=== PATIENT | male | born 1945 | race Caucasian/White ===

== ENCOUNTER 2021-06-01 10:03 | Emergency (ER) | payer MEDICARE, OTHER ==
[~2021-06-01] VITALS: Ht 177.8 cm; Wt 82.5 kg
--- OUTSIDE RECORDS SUMMARY | 2021-06-01 10:11 | XMS REPORT | Clinical Summary ---
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
[2021-06-01 10:44] LABS: WHITE BLOOD COUNT 9.6 10^3/uL (4.3-11.0)
[2021-06-01] MEDS ORDERED: KETOROLAC 30 MG/ML VIAL IVP ONE (10:45)
--- NOTE | 2021-06-01 10:46 | ED General ---
General Chief Complaint: COVID19 Suspect/Confirmed Stated Complaint: CHEST PAIN Source of Information: Patient, Old Records (reviewed records from [facility] when he was a [facility] patient) History of Present Illness Date Seen by Provider: Jun 01, 2021 Time Seen by Provider: 10:41 Initial Comments 75-year-old male presenting with complaints of chest pain off and on for last 2 to 3 days. He cannot identify anything that brings the chest pain only. The chest pain also spontaneously resolves at times and he cannot identify anything that makes it go away. He has had no nausea or vomiting. His pain does go straight through to his back. It does seem to be worse when he coughs. He has had increased nasal congestion and sinus drainage. He has been exposed to Covid as his was diagnosed with Covid on , May 27. He denies any fever or chills. He has had no nausea or vomiting. He states that this chest pain does not feel similar to when he had heart disease or needed stents in the past. He has not tried taking anything for the pain. He has taken his regular prescription medicines but nothing extra. Timing/Duration: 2-3 Days Severity: Moderate Modifying Factors: worse with Other (coughing makes it worse) Associated Systoms: Chest Pain, Cough; No Diaphoresis, No Fever/Chills, No Headaches, No Loss of Appetite, No Malaise, No Nausea/Vomiting, No Rash, No Seizure, No Shortness of Air, No Syncope, No Weakness Allergies and Home Medications Allergies Coded Allergies: No Known Drug Allergies (Unverified , 06/01/21) Patient Home Medication List Home Medication List Reviewed: Yes Review of Systems Review of Systems Constitutional: see HPI EENTM: see HPI Respiratory: see HPI Cardiovascular: see HPI Gastrointestinal: see HPI Genitourinary: no symptoms reported Musculoskeletal: no symptoms reported Skin: no symptoms reported Psychiatric/Neurological: Anxiety (worried about his heart with the pain not going away today. ); Denies Numbness, Denies Paresthesia Hematologic/Lymphatic: Easy Bleeding (taking warfarin), Easy Bruising (taking warfarin) Past Eowcphx-Lexdxb-Xpwjyv Hx Patient Social History Smoking Status: Former Smoker Past Medical History Surgery/Hospitalization HX: CABG, Defibrillator, Coronary artery stents, Diabetes, Paroxysmal Atrial Fibrillation, Hypertension, Hyperlipidemia Surgeries: Yes Cardiac, CABG, Coronary Stent, Defibrillator Respiratory: No Cardiac: Yes Angina, Atrial Fibrillation, Cardiomyopathy, Coronary Artery Disease, Heart Attack, High Cholesterol, Hypertension Neurological: No Genitourinary: No Gastrointestinal: No Musculoskeletal: No Endocrine: Yes Diabetes, Non-Insulin dep HEENT: No Physical Exam Vital Signs Vital Signs - First Documented 06/01/21 10:08 Temp 35.6 Pulse 86 Resp 24 B/P (MAP) 151/87 (108) Pulse Ox 98 O2 Delivery Room Air Capillary Refill : Height, Weight, BMI Height: '" Weight: lbs. oz. kg; BMI Method: General Appearance: Anxious, Chronically ill HEENT: PERRL/EOMI, Pharynx Normal Neck: Full Range of Motion, Normal Inspection, Non Tender, Supple Respiratory: Chest Non Tender, Lungs Clear, Normal Breath Sounds, No Accessory Muscle Use, No Respiratory Distress Cardiovascular: Regular Rate, Rhythm, Normal Peripheral Pulses Gastrointestinal: Normal Bowel Sounds, No Pulsatile Mass, Non Tender, Soft Rectal: Deferred Extremity: Normal Capillary Refill, Normal Inspection, No Pedal Edema Neurologic/Psychiatric: Alert, Oriented x3 Skin: Normal Color, Warm/Dry Focused Exam Lactate Level 06/01/21 10:32: Lactic Acid Level 1.64 Lactic Acid Level Laboratory Tests Test 06/01/21 10:32 Lactic Acid Level 1.64 MMOL/L (0.50-2.00) Progress/Results/Core Measures Suspected Sepsis SIRS Temperature: Pulse: Respiratory Rate: Laboratory Tests 06/01/21 10:32: White Blood Count 9.6 Blood Pressure / Mean: 06/01/21 10:32: Lactic Acid Level 1.64 Laboratory Tests 06/01/21 10:32: Creatinine 1.02, INR Comment 1.9H, Platelet Count 167, Total Bilirubin 0.5 Results/Orders Lab Results Laboratory Tests Test 06/01/21 10:32 06/01/21 10:45 Range/Units White Blood Count 9.6 4.3-11.0 10^3/uL Red Blood Count 4.82 4.30-5.52 10^6/uL Hemoglobin 12.5 L 13.3-17.7 g/dL Hematocrit 40 40-54 % Mean Corpuscular Volume 84 80-99 fL Mean Corpuscular Hemoglobin 26 25-34 pg Mean Corpuscular Hemoglobin Concent 31 L 32-36 g/dL Red Cell Distribution Width 16.4 H 10.0-14.5 % Platelet Count 167 130-400 10^3/uL Mean Platelet Volume 11.7 9.0-12.2 fL Immature Granulocyte % (Auto) 0 % Neutrophils (%) (Auto) 73 42-75 % Lymphocytes (%) (Auto) 13 12-44 % Monocytes (%) (Auto) 11 0-12 % Eosinophils (%) (Auto) 3 0-10 % Basophils (%) (Auto) 1 0-10 % Neutrophils # (Auto) 7.0 1.8-7.8 X 10^3 Lymphocytes # (Auto) 1.2 1.0-4.0 X 10^3 Monocytes # (Auto) 1.0 0.0-1.0 X 10^3 Eosinophils # (Auto) 0.3 0.0-0.3 10^3/uL Basophils # (Auto) 0.1 0.0-0.1 10^3/uL Immature Granulocyte # (Auto) 0.0 0.0-0.1 10^3/uL Prothrombin Time 21.8 H 12.2-14.7 SEC INR Comment 1.9 H 0.8-1.4 Activated Partial Thromboplast Time 36 H 24-35 SEC Sodium Level 139 135-145 MMOL/L Potassium Level 4.0 3.6-5.0 MMOL/L Chloride Level 100 98-107 MMOL/L Carbon Dioxide Level 25 21-32 MMOL/L Anion Gap 14 5-14 MMOL/L Blood Urea Nitrogen 17 7-18 MG/DL Creatinine 1.02 0.60-1.30 MG/DL Estimat Glomerular Filtration Rate 71 BUN/Creatinine Ratio 17 Glucose Level 149 H 70-105 MG/DL Lactic Acid Level 1.64 0.50-2.00 MMOL/L Calcium Level 9.2 8.5-10.1 MG/DL Corrected Calcium 9.0 8.5-10.1 MG/DL Total Bilirubin 0.5 0.1-1.0 MG/DL Aspartate Amino Transf (AST/SGOT) 16 5-34 U/L Alanine Aminotransferase (ALT/SGPT) 8 0-55 U/L Alkaline Phosphatase 73 40-136 U/L Troponin I < 0.30 <0.30 NG/ML C-Reactive Protein 2.13 H <0.50 MG/DL Pro-B-Type Natriuretic Peptide 1921.0 H <75.0 PG/ML Total Protein 8.0 6.4-8.2 GM/DL Albumin 4.2 3.2-4.5 GM/DL My Orders Orders - JULIO CESAR FLORES MD Monitor-Rhythm Ecg Trace Only (06/01/21 10:07) Ed Iv/Invasive Line Start (06/01/21 10:07) Cbc With Automated Diff (06/01/21 10:07) Comprehensive Metabolic Panel (06/01/21 10:07) Crp Fs (06/01/21 10:07) Troponin I Fs (06/01/21 10:07) Protime With Inr (06/01/21 10:07) Partial Thromboplastin Time (06/01/21 10:07) Ekg Tracing (06/01/21 10:07) Probnp Fs (06/01/21 10:07) Blood Culture (06/01/21 10:07) Lactic Acid Analyzer (06/01/21 10:07) Ketorolac Injection (Toradol Injection) (06/01/21 10:45) Ct Angio Chest W (06/01/21 10:35) Chest 1 View Ap/Pa Only (06/01/21 10:37) Iohexol Injection (Omnipaque 350 Mg/Ml 1 (06/01/21 11:30) Received Contrast (Hold Metformin- Contr (06/01/21 11:30) Sodium Chloride Flush (Catheter Flush Sy (06/01/21 11:30) Ns (Ivpb) (Sodium Chloride 0.9% Ivpb Bag (06/01/21 11:30) Coronavirus Sars-Cov-2 So 2018 (06/01/21 12:14) Medications Given in ED Current Medications Medications Dose Ordered Sig/Susy Route Start Time Stop Time Status Last Admin Dose Admin Iohexol 100 ml ONCE ONCE IV 06/01/21 11:30 06/01/21 11:31 DC 06/01/21 11:48 100 ML Ketorolac Tromethamine 15 mg ONCE ONCE IVP 06/01/21 10:45 06/01/21 10:46 DC 06/01/21 11:25 15 MG Sodium Chloride 10 ml NEEDED PRN IV 06/01/21 11:30 06/01/21 13:19 DC 06/01/21 11:48 10 ML Sodium Chloride 100 ml ONCE ONCE IV 06/01/21 11:30 06/01/21 11:31 DC 06/01/21 11:48 100 ML Vital Signs/I&O 06/01/21 06/01/21 06/01/21 10:08 11:25 13:15 Temp 35.6 35.6 35.7 Pulse 86 74 Resp 24 19 B/P (MAP) 151/87 (108) 145/80 Pulse Ox 98 95 O2 Delivery Room Air Room Air Capillary Refill : Progress Note #1: Progress Note With his and Rosendo from a diagnosis on , June 06 likely has it is well. Especially with his increased nasal congestion and cough in the last several days. This likely is part of his chest pain. However with his heart disease we will also evaluate EKG and cardiac enzymes. Since he has been having pain over the last 2-3 days if this is a heart attack or heart damage he should have elevation of his troponin by now. He did cough while in the room and that seemed to make the pain worse for him so will try a dose of toradol. No acute ST elevation on ECG to send pt to lab aide. Progress Note #2: Progress Note Labs do not show any acute significant abnormality to account for his symptoms other than he had elevated CRP of 2.13 and his proBNP was up to 1921. His lactic acid was negative at 1.64. His white blood cell count was normal at 9.6 with a normal differential. His INR was 1.9. Creatinine of 1. Awaiting CT scanning of his chest to evaluate for pulmonary illness, pneumonia, aortic dissection, rib fracture, pleural effusion Progress Note #3: Progress Note CT angiogram of the chest is negative for PE, pneumonia, acute process. Counseled pt that he had negative findings for PE, Pneumonia, Heart Attack. Treat symptoms as though he has Covid. Covid swab results should be back after 24 hours. Return if any worsening symptoms or check back through the clinic. Try Mucinex to help loosen congestion and cough. ECG Initial ECG Impression Date: Jun 01, 2021 Initial ECG Impression Time: 10:09 Initial ECG Rate: 82 Initial ECG Rhythm: Normal Sinus Initial ECG Comparisson: Unchanged Comment Sinus rhythm with a rate of 82 bpm. Short NH interval of 74 ms. Left atrial enlargement. LVH with secondary repolarization changes. QT interval 380 ms with a QTc interval 444 ms. Appears similar to tracings in the [facility] Diagnostic Imaging Diagonstic Imaging: CT Plain Films/CT/US/NM/MRI: chest Comments NAME: NATALIE TORIBIO [facility] REC#: [id number] PT STATUS: REG ER : 1945 PHYSICIAN: JULIO CESAR FLORES MD ADMIT DATE: 06/01/21/ER FS Draft Date of Exam:06/01/21 CT ANGIO CHEST W PROCEDURE: CT angiography of the chest with contrast. TECHNIQUE: Multiple contiguous axial images were obtained through the chest after uneventful bolus administration of intravenous contrast. 3D reconstructed CTA MIP acquisitions were also performed. Auto Exposure Controls were utilized during the CT exam to meet ALARA standards for radiation dose reduction. INDICATION: Chest pain for 2 days as well as cough. No prior studies are available for comparison. Evaluation of pulmonary arterial system is without evidence of thromboembolism. No definite filling defects are seen within central, lobar or segmental branches. Thoracic aorta is normal caliber. No pericardial or pleural fluid is identified. There are postoperative changes of median sternotomy and CABG. There is a left chest wall cardiac pacemaker in place. Lungs appear clear of acute infiltrates. There is indeterminant nodule in the right lower lobe, image 117 measuring 8 mm in size. Follow-up would be recommended. Otherwise lungs are clear. Upper abdomen is unremarkable. IMPRESSION: 1. No evidence of pulmonary embolism. 2. No acute feature in the chest is identified. 3. 8 mm right lower lobe pulmonary nodule, indeterminate. Follow up to confirm stability would be recommended. Dictated on workstation # [id number] Dict: 06/01/21 1156 Trans: 06/01/21 1206 [facility] [id number] Interpreted by: MARCUS DAVIDSON MD Electronically signed by: Diagonstic Imaging: Xray Plain Films/CT/US/NM/MRI: chest Comments NAME: NATALIE TORIBIO [facility] REC#: [id number] PT STATUS: REG ER : 1945 PHYSICIAN: JULIO CESAR FLORES MD ADMIT DATE: 06/01/21/ER FS Signed Date of Exam:06/01/21 CHEST 1 VIEW AP/PA ONLY INDICATION: chest pain x 2 days, cough, exposed to COVID. TECHNIQUE: Single view chest 11:27 AM. CORRELATION STUDY: None FINDINGS: Poststernotomy changes with coronary artery bypass. Left-sided pacemaker is present, obscuring portions of the left upper lung. Heart size enlarged with pulmonary vasculature within normal limits. The lungs are clear with no consolidating infiltrate. There is no significant effusion or pneumothorax. May be minimal areas of fibrosis over the left mid lung. IMPRESSION: 1. Negative for acute abnormality of the chest. Dictated by: Dictated on workstation # [id number] Dict: 06/01/21 1153 Trans: 06/01/21 1155 DO [id number] Interpreted by: SOBIA RIVAS DO Electronically signed by: SOBIA RIVAS DO 06/01/21 1155 Reviewed: Reviewed by Me Departure Impression Primary Impression: Chest pain in adult Additional Impressions: Cough in adult patient Exposure to confirmed case of COVID-19 Pulmonary nodule seen on imaging study Disposition: HOME, SELF-CARE Condition: Stable Departure-Patient Inst. Decision time for Depature: 12:56 Referrals: SELFMULU MD (PCP/Family) Primary Care Physician Patient Instructions: COVID-19 After You Have Been Vaccinated, COVID-19 Tests, Chest Pain, Adult ED, Cough, Adult ED, Pulmonary Nodule Add. Discharge Instructions: You will get called if you have positive result on your COVID test from today. This may take 24 hours or more to get back. In the meantime you should consider that you have COVID because of your exposure to your . Quarantine and stay isolated for next 10 days. If you have worsening symptoms or more problems return or seek medical care with your provider. Try taking over the counter Mucinex to help loosen your cough and congestion. Do not take your Metformin (Glucophage) for the next 2 days. It can interact with your IV dye that you got for your CT scan of the chest today. After 2 days you can restart the medicine. All discharge instructions reviewed with patient and/or family. Voiced understa nding. JULIO CESAR FLORES MD Jun 01, 2021 10:46
[2021-06-01 10:51] LABS: HEMATOCRIT 40 % (40-54); HEMOGLOBIN 12.5 g/dL (13.3-17.7); LYMPHOCYTES % (AUTO) 13 % (12-44); MEAN CORPUSCULAR HEMOGLOBIN 26 pg (25-34); MEAN CORPUSCULAR HGB CONC 31 g/dL (32-36); MEAN CORPUSCULAR VOLUME 84 fL (80-99); MEAN PLATELET VOLUME 11.7 fL (9.0-12.2); NEUTROPHILS % (AUTO) 73 % (42-75); PLATELET COUNT 167 10^3/uL (130-400)
[2021-06-01 10:52] LABS: BASOPHILS # (AUTO) 0.1 10^3/uL (0.0-0.1); BASOPHILS % (AUTO) 1 % (0-10); EOSINOPHILS # (AUTO) 0.3 10^3/uL (0.0-0.3); EOSINOPHILS % (AUTO) 3 % (0-10); LYMPHOCYTES # (AUTO) 1.2 X 10^3 (1.0-4.0); MONOCYTES % (AUTO) 11 % (0-12)
[2021-06-01 11:00] LABS: INR 1.9 (0.8-1.4); PROTHROMBIN TIME PATIENT 21.8 SEC (12.2-14.7)
[2021-06-01 11:09] LABS: CHLORIDE 100 MMOL/L (98-107); SODIUM 139 MMOL/L (135-145)
[2021-06-01 11:10] LABS: ALANINE AMINOTRANSFERASE 8 U/L (0-55); ALKALINE PHOSPHATASE 73 U/L (40-136); BILIRUBIN,TOTAL 0.5 MG/DL (0.1-1.0); BUN/CREATININE RATIO 17; CALCIUM 9.2 MG/DL (8.5-10.1); CARBON DIOXIDE 25 MMOL/L (21-32); CREATININE SERUM 1.02 MG/DL (0.60-1.30); GFR ESTIMATED 71; GLUCOSE 149 MG/DL (70-105)
[2021-06-01 11:11] LABS: ALBUMIN 4.2 GM/DL (3.2-4.5)
[2021-06-01] MEDS ORDERED: IOHEXOL 350 MG/ML 100 ML (OMNIPAQUE 350) VIAL IV ONE (11:30)
[2021-06-01] MEDS ORDERED: CATHETER FLUSH 10 ML SYR IV PRN (11:30)
[2021-06-01] MEDS ORDERED: NS 100 ML (IVPB) BAG IV ONE (11:30)
[2021-06-01] MEDS ORDERED: HOLD METFORMIN - RECEIVED CONTRAST 20 ML VIAL IV SCH (11:30)
--- NOTE | 2021-06-01 11:56 | Diagnostic Imaging Report ---
INDICATION: chest pain x 2 days, cough, exposed to COVID. TECHNIQUE: Single view chest 11:27 AM. CORRELATION STUDY: None FINDINGS: Poststernotomy changes with coronary artery bypass. Left-sided pacemaker is present, obscuring portions of the left upper lung. Heart size enlarged with pulmonary vasculature within normal limits. The lungs are clear with no consolidating infiltrate. There is no significant effusion or pneumothorax. May be minimal areas of fibrosis over the left mid lung. IMPRESSION: 1. Negative for acute abnormality of the chest. Dictated by: Dictated on workstation # [id number]
--- NOTE | 2021-06-01 12:07 | Diagnostic Imaging Report ---
PROCEDURE: CT angiography of the chest with contrast. TECHNIQUE: Multiple contiguous axial images were obtained through the chest after uneventful bolus administration of intravenous contrast. 3D reconstructed CTA MIP acquisitions were also performed. Auto Exposure Controls were utilized during the CT exam to meet ALARA standards for radiation dose reduction. INDICATION: Chest pain for 2 days as well as cough. No prior studies are available for comparison. Evaluation of pulmonary arterial system is without evidence of thromboembolism. No definite filling defects are seen within central, lobar or segmental branches. Thoracic aorta is normal caliber. No pericardial or pleural fluid is identified. There are postoperative changes of median sternotomy and CABG. There is a left chest wall cardiac pacemaker in place. Lungs appear clear of acute infiltrates. There is indeterminant nodule in the right lower lobe, image 117 measuring 8 mm in size. Follow-up would be recommended. Otherwise lungs are clear. Upper abdomen is unremarkable. IMPRESSION: 1. No evidence of pulmonary embolism. 2. No acute feature in the chest is identified. 3. 8 mm right lower lobe pulmonary nodule, indeterminate. Follow up to confirm stability would be recommended. Dictated by: Dictated on workstation # [id number]
[2021-06-01 13:15] VITALS: BP 145/80
== END 2021-06-01 13:15 | disposition home or self-care (01) ==
LOC: ER FS 10:06
DX: U07.1 COVID-19 (principal); R91.1 Solitary pulmonary nodule; I25.2 Old myocardial infarction; I10 Essential (primary) hypertension
CPT/HCPCS: 36415; 71045; 71275; 80053; 83605; 83880; 84484; 85025; 85610; 85730; 86141; 87040; 87635; 93005; 93041